=== PATIENT | male | born 2000 | race Caucasian/White ===

== ENCOUNTER 2021-12-23 16:42 | Emergency (ER) | payer OTHER ==
[~2021-12-23] VITALS: Ht 182.9 cm; Wt 113.6 kg
[2021-12-23 18:00] LABS: BASO # 0.03 K/mm3 (0.02-0.10); EOS # 0.23 K/mm3 (0.04-0.40); EOS % 1.6 % (0.0-4.0); HEMATOCRIT 46.5 % (42.0-52.0); HEMOGLOBIN 16.1 g/dL (13.5-18.0); LYMPH# 3.06 K/mm3 (1.50-4.00); MEAN CELL VOLUME 81 fl (78-100); MEAN CORPUSCULAR HEMOGLOBIN 28 pg (27-31); MEAN CORPUSCULAR HGB CONC 35 g/dL (33-37); MEAN PLATELET VOLUME 11.1 fl (7.4-10.4); MONO # 1.14 K/mm3 (0.20-0.80); NEU # 10.01 K/mm3 (1.40-6.50); PLATELET COUNT 261 K/mm3 (130-400); RED BLOOD COUNT 5.74 M/mm3 (4.20-5.60); WHITE BLOOD COUNT 14.5 K/mm3 (4.8-10.8)
[2021-12-23 18:09] LABS: ALBUMIN 4.7 g/dL (3.5-5.0)
[2021-12-23 18:11] LABS: CALCIUM 10.2 mg/dL (8.3-10.5)
[2021-12-23 18:12] LABS: TOTAL PROTEIN 7.9 g/dL (6.4-8.3)
[2021-12-23 18:14] LABS: TOTAL BILIRUBIN 0.7 mg/dL (0.2-1.2)
[2021-12-23 19:40] LABS: URINE APPEARANCE CLEAR; URINE BILIRUBIN NEGATIVE (NEGATIVE); URINE BLOOD NEGATIVE (NEGATIVE); URINE COLOR YELLOW; URINE GLUCOSE NEGATIVE (NEGATIVE); URINE KETONE NEGATIVE (NEGATIVE); URINE LEUKOCYTE ESTERASE NEGATIVE (NEGATIVE); URINE NITRATE NEGATIVE (NEGATIVE); URINE PROTEIN(semi-quant) NEGATIVE (NEGATIVE); URINE UROBILINOGEN NORMAL (NORMAL)
[2021-12-23 19:51] LABS: URINE MUCUS PRESENT (NOT PRESENT)
[2021-12-23 20:24] VITALS: BP 120/75
== END 2021-12-23 20:34 | disposition home or self-care (01) ==
LOC: ED 16:42
PROVIDERS: Family Medicine
DX: K59.89 Other specified functional intestinal disorders (principal); F17.200 Nicotine dependence, unspecified, uncomplicated; Z87.442 Personal history of urinary calculi; Z28.310 Unvaccinated for COVID-19